=== PATIENT | female | born 1955 | race African-American/Black ===

== ENCOUNTER → 2016-07-22 | Outpatient (CLI) | payer OTHER ==
[~2016-07-22] MED LIST: REGADENOSON 0.4 MG/5 ML SYRINGE ONE
== END | disposition home or self-care (01) ==
LOC: CFH 08:18
PROVIDERS: ATTEND Internal Medicine Cardiovascular Disease
DX: R07.89 Other chest pain (principal); I10 Essential (primary) hypertension
CPT/HCPCS: 78452; 93017; A9502; J2785

== ENCOUNTER 2017-06-06 17:19 | Inpatient (IN) | payer OTHER ==
[~2017-06-06] VITALS: Ht 170.2 cm; Wt 94.1 kg
[2017-06-06] MEDS ORDERED: ALBUTEROL/IPRATROPIUM 2.5MG/0.5MG, 3 ML NPPB SCH (18:00)
[2017-06-06] MEDS ORDERED: SODIUM CHLORIDE FLUSH 10ML SYR IVF ONE (18:00)
[2017-06-06] MEDS ORDERED: ALBUTEROL/IPRATROPIUM 2.5MG/0.5MG, 3 ML ONE (18:01)
[2017-06-06 18:19] LABS: BASOPHILS % (AUTO) 0 % (0-1); EOSINOPHILS # (AUTO) 0.17 x10^3/uL (0-0.4); EOSINOPHILS % (AUTO) 2 % (1-7); LYMPHOCYTES # (AUTO) 3.18 x10^3/uL (1-3.4); LYMPHOCYTES % (AUTO) 33 % (22-44); MD NO; MEAN CORPUSCULAR HGB CONC 33.2 g/dL (32.4-35.8); MEAN CORPUSCULAR VOLUME 93.1 fL (80-100); MEAN PLATELET VOLUME 8.2 fL (7.4-10.4); MONOCYTES # (AUTO) 0.45 x10^3/uL (0.2-0.8); MONOCYTES % (AUTO) 5 % (2-9); NEUTROPHILS # (AUTO) 5.92 x10^3/uL (1.8-6.8); NEUTROPHILS % (AUTO) 61 % (42-75); PLATELET COUNT 238 x10^3/uL (130-400); RED BLOOD COUNT 5.09 x10^6/uL (3.82-5.3); RED CELL DISTRIBUTION WIDTH 15.4 % (9.6-15.2)
[2017-06-06 18:32] LABS: ALANINE AMINOTRANSFERASE 17 U/L (12-78); ALBUMIN 3.4 g/dL (3.4-5.0); ANION GAP 7 mmol/L (5-15); CALCIUM 9.5 mg/dL (8.5-10.1); CHLORIDE 108 mmol/L (98-107); CREATININE 0.83 mg/dL (0.55-1.02)
[2017-06-06 18:35] LABS: RAPID INFLUENZA A Negative (Negative); RAPID INFLUENZA B Negative (Negative)
[2017-06-06 18:36] LABS: ALKALINE PHOSPHATASE 87 U/L (45-117); BILIRUBIN,TOTAL 0.6 mg/dL (0.2-1.0); TOTAL PROTEIN 8.3 g/dL (6.4-8.2); TROPONIN I < 0.015 ng/mL (0.000-0.045)
[2017-06-06 19:10] LABS: CULTURE INDICATED? YES; MICROSCOPIC INDICATED
[2017-06-06] MEDS ORDERED: HYDROcodone/APAP 5/325 TABLET PO ONE (19:30)
[2017-06-06] MEDS ORDERED: CEFTRIAXONE PMX 1GM/50ML 50 ML IV ONE (20:00)
[2017-06-06] MEDS ORDERED: HYDROcodone/APAP 5/325 TABLET ONE (20:20)
[2017-06-06] MEDS ORDERED: CEFTRIAXONE PMX 1GM/50ML 50 ML ONE (20:20)
[2017-06-06] MEDS ORDERED: ONDANSETRON 2MG/ML, 2ML ONE (20:20)
[2017-06-06] MEDS ORDERED: OMNIPAQUE 350 MG/ML, 100ML BOTTLE ONE (20:29)
[2017-06-06] MEDS ORDERED: ONDANSETRON 2MG/ML, 2ML IVPush ONE (20:30)
[2017-06-06] MEDS ORDERED: METO25TA91 PO (20:35)
[2017-06-06] MEDS ORDERED: LOSA50TA6 PO (20:35)
[2017-06-06] MEDS ORDERED: ASPI-496 PO (20:35)
[2017-06-06] MEDS ORDERED: ATOR10TA PO (20:35)
[2017-06-06] MEDS ORDERED: AMLO10TA2 PO (20:35)
[2017-06-06] MEDS ORDERED: FURO-93 PO (20:35)
[2017-06-06] MEDS ORDERED: POTA25TA4 PO (20:35)
[2017-06-06] MEDS ORDERED: ALBUTEROL/IPRATROPIUM 2.5MG/0.5MG, 3 ML HHN SCH (23:00)
[2017-06-06] MEDS ORDERED: ACETAMINOPHEN 325 MG TABLET PO PRN (23:00)
[2017-06-06] MEDS ORDERED: hydrALAzine 20 MG/ML, 1ML IVPush PRN (23:00)
[2017-06-06] MEDS ORDERED: GUAIFENESIN/DM 200-20MG, 10ML UDC PO PRN (23:00)
[2017-06-06] MEDS ORDERED: ONDANSETRON ODT 4 MG PO PRN (23:00)
[2017-06-06] MEDS ORDERED: DOCUSATE 100 MG CAPSULE PO PRN (23:00)
[2017-06-06 23:12] VITALS: BP 149/93
[2017-06-06] MEDS: LOSARTAN 50MG TABLET PO SCH (23:30)
[2017-06-06] MEDS: ATORVASTATIN 10 MG TABLET PO SCH (23:30)
[2017-06-06] MEDS: TEMAZEPAM 15 MG CAPSULE PO PRN (23:30)
[2017-06-07 00:24] LABS: TROPONIN I < 0.015 ng/mL (0.000-0.045)
[2017-06-07] MEDS ORDERED: ALBUTEROL/IPRATROPIUM 2.5MG/0.5MG, 3 ML NPPB PRN (00:30)
[2017-06-07] MEDS: ALBUTEROL/IPRATROPIUM 2.5MG/0.5MG, 3 ML NPPB SCH ×3 (02:07→20:00)
[2017-06-07 02:28] VITALS: BP 116/65
[2017-06-07 06:42] LABS: TROPONIN I < 0.015 ng/mL (0.000-0.045)
[2017-06-07 08:01] VITALS: BP 110/74
[2017-06-07] MEDS: FUROSEMIDE 20 MG TABLET PO SCH (08:24)
[2017-06-07] MEDS: ASPIRIN 81 MG TABLET EC PO SCH (08:25)
[2017-06-07] MEDS: POTASSIUM CHLORIDE 10 MEQ TABLET.ER PO SCH (08:26)
[2017-06-07] MEDS: METOPROLOL SUCCINATE 25 MG TAB.ER.24H PO SCH (09:00)
[2017-06-07] MEDS: LOSARTAN 50MG TABLET PO SCH ×2 (09:00→20:25)
[2017-06-07] MEDS: AMLODIPINE 5 MG TABLET PO SCH (09:00)
[2017-06-07 13:37] VITALS: BP 127/81
[2017-06-07] MEDS: NICOTINE 21 MG/24 HR PATCH.TD24 TD SCH (14:01)
[2017-06-07] MEDS ORDERED: CEFTRIAXONE PMX 1GM/50ML 50 ML IV SCH (20:00)
[2017-06-07 20:20] VITALS: BP 127/81
[2017-06-07] MEDS: GUAIFENESIN ER 600 MG TABLET PO SCH (20:25)
[2017-06-07] MEDS: ATORVASTATIN 10 MG TABLET PO SCH (20:25)
[2017-06-07] MEDS: TEMAZEPAM 15 MG CAPSULE PO PRN (22:22)
[2017-06-08 00:42] VITALS: BP 122/78
[2017-06-08] MEDS: ALBUTEROL/IPRATROPIUM 2.5MG/0.5MG, 3 ML NPPB SCH ×2 (03:00→09:30)
[2017-06-08 08:03] VITALS: BP 135/89
[2017-06-08] MEDS: FUROSEMIDE 20 MG TABLET PO SCH (08:10)
[2017-06-08] MEDS: POTASSIUM CHLORIDE 10 MEQ TABLET.ER PO SCH (08:10)
[2017-06-08] MEDS: METOPROLOL SUCCINATE 25 MG TAB.ER.24H PO SCH (08:10)
[2017-06-08] MEDS: ASPIRIN 81 MG TABLET EC PO SCH (08:10)
[2017-06-08] MEDS: AMLODIPINE 5 MG TABLET PO SCH (08:10)
[2017-06-08] MEDS: LOSARTAN 50MG TABLET PO SCH (08:10)
[2017-06-08] MEDS: GUAIFENESIN ER 600 MG TABLET PO SCH (08:10)
[2017-06-08] MEDS: NICOTINE 21 MG/24 HR PATCH.TD24 TD SCH (08:12)
[2017-06-08] MEDS ORDERED: MAALOX/HYOSCYAMINE/LIDOCAINE 45 ML BTL PO ONE (10:00)
[2017-06-08] MEDS ORDERED: CEFD300C37 PO (10:33)
[2017-06-08] MEDS ORDERED: AZIT250T89 PO (10:33)
[2017-06-08] MEDS ORDERED: NICO-487 TD (10:33)
[2017-06-08] MEDS ORDERED: PRED20TA PO (10:33)
[2017-06-08] MEDS ORDERED: FLU VACC QS2017-18 (36MOS+) UP/PF 0.5 ML IM-VACC ONE (11:00)
[2017-06-08] MEDS ORDERED: AZITHROMYCIN 500 MG TABLET PO ONE (11:00)
== END 2017-06-08 12:31 | disposition home or self-care (01) | DRG 192 ==
LOC: ED 20:14 → EDIP 20:20 → 4EST 23:03 → DCLOUNGE 06-08 12:20
PROVIDERS: ADMIT Internal Medicine; ATTEND Internal Medicine
DX: J44.0 Chronic obstructive pulmonary disease with (acute) lower respiratory infection (principal); I11.9 Hypertensive heart disease without heart failure; N30.91 Cystitis, unspecified with hematuria; E66.9 Obesity, unspecified; J44.1 Chronic obstructive pulmonary disease with (acute) exacerbation; F17.210 Nicotine dependence, cigarettes, uncomplicated; Z23 Encounter for immunization; Z88.8 Allergy status to other drugs, medicaments and biological substances; Z68.32 Body mass index [BMI] 32.0-32.9, adult; J20.9 Acute bronchitis, unspecified; R79.1 Abnormal coagulation profile; Z82.49 Family history of ischemic heart disease and other diseases of the circulatory system; Z87.11 Personal history of peptic ulcer disease; Z90.710 Acquired absence of both cervix and uterus
CPT/HCPCS: 36415; 71045; 71275; 80053; 81001; 83605; 83880; 84484; 85025; 85379; 87040; 87070; 87077; 87086; 87186; 87205; 87400; 90686; 93005; 94640; J0696; J2405; J7620; Q9967; J7512